=== PATIENT | female | born 1980 | race Caucasian/White ===

== ENCOUNTER → 2018-05-14 | Outpatient (CLI) | payer OTHER ==
--- NOTE | 2018-05-18 08:31 | MM ---
Reason for exam: screening (asymptomatic). Baseline mammogram. History: Taking hormonal contraceptives for 20 years. Physical Findings: Nurse did not find any significant physical abnormalities on exam. MG Screening Mammo w CAD Bilateral CC and MLO view(s) were taken. The breast tissue is heterogeneously dense. This may lower the sensitivity of mammography. There is no discrete abnormality. These results were verbally communicated with the patient and result sheet given to the patient on 05/14/18. ASSESSMENT: Negative, BI-RAD 1 RECOMMENDATION: Routine screening mammogram of both breasts at age 40.
== END | disposition home or self-care (01) ==
LOC: RADMAMWWP 15:31
PROVIDERS: ATTEND Obstetrics & Gynecology
DX: Z12.31 Encounter for screening mammogram for malignant neoplasm of breast (principal)
CPT/HCPCS: 77067

== ENCOUNTER → 2019-08-16 | Outpatient (CLI) | payer OTHER ==
--- NOTE | 2019-08-17 08:41 | US ---
EXAMINATION TYPE: US thyroid st tissue head/neck DATE OF EXAM: 08/16/2019 COMPARISON: NONE CLINICAL HISTORY: R22.1 SWELLING MASS AND LUMP. Pt states difficulty losing weight GLAND SIZE: Right Lobe: 4.8 x 1.9 x 1.4 cm Overall Parenchyma: heterogenous Left Lobe: 4.9 x 1.7 x 1.4 cm Overall Parenchyma: heterogeneous Isthmus Thickness: 0.4 cm Bilateral neck scanned, no evidence of lymphadenopathy. Bilateral thyroid heterogeneous, no definite nodules visualized. IMPRESSION: 1. Normal thyroid scan
--- NOTE | 2019-08-17 08:45 | US ---
EXAMINATION TYPE: US pelvic complete DATE OF EXAM: 08/16/2019 COMPARISON: CT CLINICAL HISTORY: E28.2 POLYCYSTIC OVARIAN SYNDROME. Pt states abnormal menses, 4 skipped this year, pt states diagnosed with PCOS many years ago TECHNIQUE: Transabdominal (TA). Transabdominal sonographic images of the pelvis were acquired. Date of LMP: 4 weeks ago EXAM MEASUREMENTS: Uterus: 8.1 x 3.4 x 4.8 cm Endometrial Stripe: 1.1 cm Right Ovary: 4.1 x 4.1 x 2.7 cm Left Ovary: 2.4 x 2.6 x 1.2 cm Urinary bladder is sonolucent. Posterior wall is normal. 1. Uterus: Anteverted Appeared wnl 2. Endometrium: wnl 3. Right Ovary: Cyst= 3.3 x 1.6 x 3.1 cm 4. Left Ovary: wnl 5. Bilateral Adnexa: wnl 6. Posterior cul-de-sac: wnl Simple cyst right ovary, ovaries did not have typical appearance of PCOS IMPRESSION: 1. Right ovarian cyst. Follow-up exam in 6 weeks following the next normal menstrual period is recomm ended. 2. Typical ultrasound findings of polycystic ovarian syndrome not apparent on the current exam.
== END | disposition home or self-care (01) ==
LOC: RADUSWWP 16:13
PROVIDERS: ATTEND Family Medicine
DX: N83.201 Unspecified ovarian cyst, right side (principal); R22.1 Localized swelling, mass and lump, neck
CPT/HCPCS: 76536; 76856

== ENCOUNTER → 2019-11-30 | Outpatient (CLI) | payer OTHER ==
--- NOTE | 2019-11-30 09:02 | US ---
EXAMINATION TYPE: US transvaginal DATE OF EXAM: 11/30/2019 COMPARISON: US 08/16/2019 CLINICAL HISTORY: N83.201 Unspecified ovarian cyst, right side. Follow up TECHNIQUE: . Transvaginal sonographic images of the pelvis were acquired. Date of LMP: 12/25/2019 EXAM MEASUREMENTS: Uterus: 7.2 x 3.8 x 4.2 cm Endometrial Stripe: 0.4 cm Right Ovary: 2.7 x 2.3 x 2.4 cm Left Ovary: 2.4 x 1.6 x 1.5 cm 1. Uterus: Retroverted wnl 2. Endometrium: wnl 3. Right Ovary: Several follicles visualized, largest measuring 1.5 cm 4. Left Ovary: Several follicles visualized 5. Bilateral Adnexa: wnl 6. Posterior cul-de-sac: wnl IMPRESSION: Unremarkable study currently. Several follicles or simple-appearing thin-walled cyst, for dottie is favored
== END | disposition home or self-care (01) ==
LOC: RADUSWWP 08:14
PROVIDERS: ATTEND Family Medicine
DX: N83.201 Unspecified ovarian cyst, right side (principal)
CPT/HCPCS: 76830

== ENCOUNTER → 2020-03-07 | Outpatient (CLI) | payer OTHER ==
[2020-03-07 16:23] LABS: Basophils # (A) 0.1 k/uL (0-0.2); Basophils % (A) 1 %; Eosinophils # (A) 0.1 k/uL (0-0.7); Eosinophils % (A) 2 %; HCT 39.2 % (34.0-46.0); HGB 12.8 gm/dL (11.4-16.0); Lymphocytes # (A) 1.8 k/uL (1.0-4.8); Lymphocytes % (A) 21 %; MCH 29.1 pg (25.0-35.0); MCHC 32.7 g/dL (31.0-37.0); MCV 89.1 fL (80.0-100.0); Mean Platelet Volume 6.5; Monocytes # (A) 0.4 k/uL (0-1.0); Monocytes % (A) 4 %; Neutrophils # (A) 6.1 k/uL (1.3-7.7); Neutrophils % (A) 71 %; Platelet Count 266 k/uL (150-450); RBC 4.41 m/uL (3.80-5.40); RDW 13.3 % (11.5-15.5); WBC 8.5 k/uL (3.8-10.6)
== END | disposition home or self-care (01) ==
LOC: LABPAT 16:01
PROVIDERS: ATTEND Obstetrics & Gynecology
DX: Z01.818 Encounter for other preprocedural examination (principal); N93.8 Other specified abnormal uterine and vaginal bleeding; N92.1 Excessive and frequent menstruation with irregular cycle
CPT/HCPCS: 36415; 85025

== ENCOUNTER 2020-03-12 10:18 | Day surgery (SDC) | payer OTHER ==
[2020-03-07 10:12] VITALS: BMI 37.8
--- NOTE | 2020-03-08 10:22 | HP ---
HISTORY AND PHYSICAL DATE OF SERVICE: 03/08/2020. DATE OF SURGERY: 03/12/2020 HISTORY OF PRESENT ILLNESS: The patient is a 39-year-old 1, para 1-0-0-1, who presents to the office by referral with a complaint of long-standing history of significantly irregular bleeding which has also more recently become significantly heavy. She has used oral contraceptive pill effectively in the past, though recently has found to be less effective with continued heavy bleeding. Her does have a vasectomy and she has presented to discuss alternative treatments. She has a history of polycystic ovarian syndrome and is particularly interested in NovaSure endometrial ablation. PAST MEDICAL HISTORY: Significant for hyperhidrosis and PCOS. SURGICAL HISTORY: Significant for section as well as wisdom teeth extraction. There were no anesthetic concerns. OBSTETRICAL HISTORY: 1, para 1-0-0-1 with one term section. Current method of contraception is vasectomy. GYNECOLOGIC HISTORY: Unremarkable with no history of any infections to include STDs. She does carry a diagnosis of polycystic ovarian syndrome as noted above. FAMILY HISTORY: Noncontributory. 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 She is a nonsmoker. Reports occasional alcohol. No other social concerns. CURRENT MEDICATIONS: Include only Blisovi 24 oral contraceptive pills daily. ALLERGIES: BACTRIM DS caused a reaction. REVIEW OF SYSTEMS: Confined to history of present illness. PHYSICAL EXAMINATION: Vital signs are stable. The patient is afebrile. In general, this is a well- developed, moderately obese, white female in no acute distress. Her heart has regular rhythm and rate without murmur. Her lungs are clear to auscultation bilaterally in all martinez. Her abdomen is nondistended, has normoactive bowel sounds, soft, nontender, and without any palpable masses, hepatosplenomegaly, or hernias. Her extremities are without any cyanosis, clubbing, or significant edema and are nontender to palpation bilaterally. Pelvic examination demonstrates normal external genitalia and BUS with normal vaginal mucosa and cervix. There is no cervical motion tenderness. The uterus is 4 to 5 weeks in size, mid plane, mobile, nontender, normal in shape and the adnexa are normal, nontender without mass bilaterally. Endometrial biopsy was performed and demonstrated benign tissue. ASSESSMENT AND PLAN: Menometrorrhagia. We discussed multiple alternatives for treatment and the patient has requested definitive treatment with diagnostic hysteroscopy with NovaSure endometrial ablation. The risks and complications of the procedures have been discussed at length including the risks for bleeding, bleeding requiring transfusion, infection, and injury to local structures to specifically include uterine perforation, Asherman syndrome, and possible hematometra. She has understood all this and has agreed to proceed and is scheduled for the procedure as noted above on the morning of March 12, 2020. MMODL / IJN: [id number] /
[~2020-03-12 10:18] MED LIST: DEXAMETHASONE SOD PHOSPHATE 10 MG/ML 1 ML VIAL IV ONE; HYDROmorphone 0.5 MG/0.5 ML SYRINGE IVP PRN; LACTATED RINGERS 1,000 ML IV SCH; ONDANSETRON 4 MG/2 ML VIAL IVP ONE; Pre Op ABX Message 1 EACH MISC MISCELLANE ONE
[2020-03-12 10:41] VITALS: RESP 16
[2020-03-12] MEDS ORDERED: KETOROLAC 15 MG/ML 1 ML VIAL ONE (11:04)
[2020-03-12] MEDS ORDERED: fentaNYL (PF) 50 MCG/ML 2 ML AMP ONE (11:04)
[2020-03-12] MEDS ORDERED: MIDAZOLAM 2 MG/2 ML VIAL ONE (11:04)
[2020-03-12] MEDS ORDERED: LIDOCAINE 1% INJ 10MG/ML (20 ML MDV) ONE (11:04)
[2020-03-12] MEDS ORDERED: PROPOFOL 10 MG/ML 20 ML VIAL IV ONE (11:04)
[2020-03-12] MEDS ORDERED: SUCCINYLCHOLINE CHLORIDE 100 MG/5 ML SYR IV ONE (11:04)
[2020-03-12] MEDS ORDERED: Acetaminophen-Codeine 300-30mg TAB PO PRN ×2 (11:39)
[2020-03-12] MEDS ORDERED: SIMETHICONE 80 MG CHEWABLE PO PRN (11:39)
[2020-03-12] MEDS ORDERED: IBUPROFEN 600 MG TAB PO PRN (11:39)
[2020-03-12] MEDS ORDERED: KETOROLAC 15 MG/ML 1 ML VIAL IVP PRN (11:39)
[2020-03-12] MEDS ORDERED: diphenhydrAMINE 50 MG/ML 1 ML VIAL IVP PRN (11:39)
[2020-03-12] MEDS ORDERED: ONDANSETRON 4 MG/2 ML VIAL IVP PRN (11:39)
[2020-03-12] MEDS ORDERED: METOCLOPRAMIDE 5 MG/ML 2 ML VIAL IVP PRN (11:39)
[2020-03-12] MEDS ORDERED: LACTATED RINGERS 1,000 ML IV SCH (11:45)
--- NOTE | 2020-03-12 11:47 | P.OP ---
Date of Procedure: 03/12/20 Preoperative Diagnosis: #1. Menometrorrhagia Postoperative Diagnosis: Same Procedure(s) Performed: #1. Diagnostic hysteroscopy #2. NovaSure endometrial ablation Anesthesia: ILDA Surgeon: Gelacio Virgen Estimated Blood Loss (ml): 5 IV fluids (ml): 400 Urine output (ml): 20 Pathology: none sent Condition: stable Disposition: PACU Operative Findings: Preoperative pelvic examination demonstrated a roughly 4-5 week midplane mobile normal shaped uterus with normal adnexa bilaterally. Intraoperatively, the uterus sounded to 8 cm on the cervix was approximately 3 cm in length. The bilateral tubal ostia were seen and there was no apparent pathology noted. The endometrium almost had an atrophic appearance. The settings for the NovaSure tool where a length of 5.0 cm, a width of 3.3 cm for a total power of 91 W. A total run time of 59 seconds was carried out after which time the base unit read "procedure complete." The postprocedural result appeared to be excellent. The patient is a poor candidate for vaginal hysterectomy should become necessary in the future. The patient's cervix does appear to be fairly friable and bleeds easily when touched or grasped. Description of Procedure: The patient was prepped and draped in usual fashion after general endotracheal anesthesia was administered by the anesthesiologist. A weighted speculum was placed and the anterior lip of the cervix grasped initially with a single-tooth tenaculum but then exchanged for an Allis clamp. The bladder was draining approximately 20 mL of clear guevara urine. Uterus was sounded to 8 cm with a cervical length of 3 cm as above. Serial dilation was carried out to admit the diagnostic hysteroscope which was placed into the uterus and the uterus distended with saline. The findings are as noted above. The bilateral tubal ostia were seen. There was a small divot near the right tubal ostia which was likely created with the sound or a dilator but did not penetrate into the myometrium. After adequate hysteroscopy carried out, the scope was set aside and the NovaSure tool placed into the endometrial cavity and seated well. The settings for the tool where a length of 5.0 cm, a width of 3.3 cm for a total power of 91 W. The cavity check was attempted and passed without difficulty. The tool was enabled and the run was started. There was an interruption and the run as there was a failure of the vacuum which was corrected. The run was then continued and, after total run time of 59 seconds, the base unit read "procedure complete." The 2 was closed, removed, and discarded. The diagnostic scope was replaced into the endometrial cavity and the result appeared to be excellent. The patient did have some ongoing bleeding from the cervix which appeared to be fairly friable in nature and bled from simple touching. There was no ongoing bleeding from the tenaculum site or Allis site. Estimated blood loss for the entire case was approximate 5 mL or less. There were no complications. All sponge, instrument, needle counts were correct. The patient tolerated the procedure well and proceeded to the recovery room in stable condition.
[2020-03-12 11:52] VITALS: TEMP 97.3
[2020-03-12 12:56] VITALS: BP 122/63; PULSE 71
== END 2020-03-12 13:30 | disposition home or self-care (01) ==
LOC: OR 10:18
PROVIDERS: ATTEND Obstetrics & Gynecology
DX: N92.1 Excessive and frequent menstruation with irregular cycle (principal); E28.2 Polycystic ovarian syndrome; K21.9 Gastro-esophageal reflux disease without esophagitis; Z88.2 Allergy status to sulfonamides; Z98.890 Other specified postprocedural states; Z79.3 Long term (current) use of hormonal contraceptives; Z86.010 Personal history of colon polyps
CPT/HCPCS: 81025; 58563; J2250; J1100; J2405; J2001; J3010; J1885; J0330; J2704

== ENCOUNTER → 2020-11-19 | Outpatient (CLI) | payer OTHER ==
--- NOTE | 2020-11-21 14:07 | MM ---
Reason for exam: screening (asymptomatic). Last mammogram was performed 2 years and 6 months ago. History: Taking hormonal contraceptives for 20 years. Physical Findings: A clinical breast exam by your physician is recommended on an annual basis and results should be correlated with mammographic findings. MG Screening Mammo w CAD Bilateral CC and MLO view(s) were taken. Prior study comparison: May 14, 2018, bilateral MG screening mammo w CAD. There are scattered fibroglandular densities. ASSESSMENT: Benign, BI-RAD 2 RECOMMENDATION: Routine screening mammogram of both breasts in 1 year.
== END | disposition home or self-care (01) ==
LOC: RADMAMWWP 15:49
PROVIDERS: ATTEND Family Medicine
DX: Z12.31 Encounter for screening mammogram for malignant neoplasm of breast (principal)
CPT/HCPCS: 77067

== ENCOUNTER → 2021-12-14 | Outpatient (CLI) | payer OTHER ==
--- NOTE | 2021-12-15 14:32 | CT ---
EXAMINATION TYPE: CT soft tissue neck w con CT DLP: 720 mGycm, Automated exposure control for dose reduction was used. DATE OF EXAM: 12/14/2021 8:11 AM COMPARISON: CT neck to 08/01/2015. CLINICAL INDICATION:Female, 41 years old with history of R22.1 Swelling, Left parotid swelling for 8 months to 1 year TECHNIQUE: Standard enhanced CT of the neck following intravenous administration of 100 cc of Isovue 300. Axial sections with coronal and sagittal reformats were obtained. FINDINGS: Brain: Visualized portions are grossly unremarkable. Orbits: Unremarkable Sinuses: Grossly unremarkable. Spaces of the neck: Previous area of increased attenuation in the left parotid gland now measures 28 x 19 x 24 mm , previously measuring 13 x 8 x 13 cm when comparing to 2016 and is located in the super ficial aspect of the parotid gland. There is a polylobulated borders. Musculoskeletal: No acute osseous pathology. Lymph nodes: Multiple nonenlarged lymph nodes are seen along both anterior chains of the neck. Vascular structures: Visualized major arteries are patent without evidence of aneurysm. Thoracic Inlet/airway: Airway is patent. The lung apices are clear. Soft tissues/Thyroid: Thyroid and remainder of the soft tissues are unremarkable., Other: none. IMPRESSION Interval increase in size left pelvic polylobulated left parotid gland lesion. 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 Further workup with tissue sampl ing is recommended for definitive diagnosis if not already performed.
== END | disposition home or self-care (01) ==
LOC: RADCTMAIN 07:28
PROVIDERS: ATTEND Otolaryngology
DX: K11.8 Other diseases of salivary glands (principal)
CPT/HCPCS: 70491; Q9967

== ENCOUNTER → 2023-05-25 | Outpatient (CLI) | payer OTHER ==
--- NOTE | 2023-05-26 19:16 | MM ---
Reason for Exam: Screening (asymptomatic). Last mammogram was performed 2 year(s) and 6 month(s) ago. Patient History: Menarche at age 13. First Full-Term at age 30. Late child-bearing (after 30). Patient used Hormonal Contraceptives for 20 years. Risk Values: Rosalie 5 year model risk: 1.0%. NCI Lifetime model risk: 13.2%. Prior Study Comparison: 05/14/2018 Bilateral Screening Mammogram, [facility]. 11/19/2020 Bilateral Screening Mammogram, [facility]. Tissue Density: There are scattered fibroglandular densities. Findings: Analyzed By CAD. Pattern appears symmetrical and stable. No significant interval change is evident. No suspicious groups of microcalcifications, spiculated or lobular masses, architectural distortion or other secondary signs of malignancy are mammographically apparent. Overall Assessment: Benign, BI-RAD 2 Management: Screening Mammogram of both breasts in 1 year. A negative mammogram report should not preclude additional follow up of suspicious palpable abnormalities. Patient should continue monthly self breast exam. A clinical breast exam by your physician is recommended on an annual basis and results should be correlated with mammographic findings. Electronically signed and approved by: Cornell Mandel D.O. Radiologis
== END | disposition home or self-care (01) ==
LOC: RADMAMWWP 16:05
PROVIDERS: ATTEND Family Medicine
DX: Z12.31 Encounter for screening mammogram for malignant neoplasm of breast (principal)
CPT/HCPCS: 77067